=== PATIENT | male | born 1985 | race Caucasian/White ===

== ENCOUNTER 2021-09-13 14:04 | Emergency (ER) | payer BC, OTHER ==
[~2021-09-13] VITALS: Ht 180 cm; Wt 88.0 kg
--- NOTE | 2021-09-13 14:42 | ED Cough/URI ---
General Chief Complaint: Respiratory Problems Stated Complaint: COVID POSITIVE,COUGHING UP BLOOD Nursing Triage Note: THE PT IS AMBULATORY TO THE ROOM WITHOUT DIFFICULTY. NO DISTRESS IS SEEN ON ARRIVAL. LOC IS NORMAL FOR THE PT. THE PT C/O OF A COUGH/BODY ACHES. Source: patient Exam Limitations: no limitations History of Present Illness Date Seen by Provider: Sep 13, 2021 Time Seen by Provider: 14:41 Initial Comments To ER by private vehicle with reports of cough shortness of breath and hemoptysis. The hemoptysis began today. Cough has been present for several days. He tested positive for Covid on 09/09/21. Symptoms began on 09/08/21. He is unvaccinated against Covid. He is otherwise healthy takes no medications. He has had fevers. He took a full dose aspirin this morning but otherwise no Tylenol or Motrin use yet today. He is scheduled for a a monoclonal antibody infusion tomorrow he states. Timing/Duration: constant Severity/Quality: productive cough Modifying Factors: Improves With Activity Associated Symptoms: cough, shortness of breath Allergies and Home Medications Allergies Coded Allergies: No Known Drug Allergies (Unverified , 09/13/21) Patient Home Medication List Home Medication List Reviewed: Yes Review of Systems Review of Systems Constitutional: see HPI, fever, malaise EENTM: see HPI Respiratory: see HPI, cough, short of breath Genitourinary: no symptoms reported Musculoskeletal: no symptoms reported Skin: no symptoms reported Psychiatric/Neurological: No Symptoms Reported Hematologic/Lymphatic: No Symptoms Reported Immunological/Allergic: no symptoms reported Physical Exam Vital Signs - First Documented 09/13/21 14:16 Temp 37.9 Pulse 100 Resp 18 B/P (MAP) 128/85 (99) Pulse Ox 94 Capillary Refill : Less Than 3 Seconds Height: '" Weight: lbs. oz. kg; 27.00 BMI Method: General Appearance: WD/WN, no apparent distress, other (Oxygen saturation is 92 to 94% on room air. ) Eyes: Bilateral Eye Normal Inspection, Bilateral Eye PERRL, Bilateral Eye EOMI HEENT: PERRL/EOMI, normal ENT inspection, TMs normal Neck: non-tender, full range of motion Respiratory: no respiratory distress, no accessory muscle use Cardiovascular: regular rate, rhythm, no murmur Gastrointestinal: normal bowel sounds, non tender, soft Neurologic/Psychiatric: alert, normal mood/affect, oriented x 3 Skin: normal color, warm/dry Progress/Results/Core Measures Suspected Sepsis SIRS Temperature: Pulse: 100 Respiratory Rate: 18 Laboratory Tests 09/13/21 14:37: White Blood Count 4.3 Blood Pressure 128 /85 Mean: 99 Laboratory Tests 09/13/21 14:37: Creatinine 0.92, Platelet Count 201, Total Bilirubin 0.7 Results/Orders Lab Results Laboratory Tests Test 09/13/21 14:37 09/13/21 14:54 Range/Units White Blood Count 4.3 4.3-11.0 10^3/uL Red Blood Count 5.45 4.30-5.52 10^6/uL Hemoglobin 16.0 13.3-17.7 g/dL Hematocrit 46 40-54 % Mean Corpuscular Volume 84 80-99 fL Mean Corpuscular Hemoglobin 29 25-34 pg Mean Corpuscular Hemoglobin Concent 35 32-36 g/dL Red Cell Distribution Width 12.2 10.0-14.5 % Platelet Count 201 130-400 10^3/uL Mean Platelet Volume 9.3 9.0-12.2 fL Immature Granulocyte % (Auto) 1 % Neutrophils (%) (Auto) 76 H 42-75 % Lymphocytes (%) (Auto) 13 12-44 % Monocytes (%) (Auto) 11 0-12 % Eosinophils (%) (Auto) 0 0-10 % Basophils (%) (Auto) 0 0-10 % Neutrophils # (Auto) 3.3 1.8-7.8 X 10^3 Lymphocytes # (Auto) 0.6 L 1.0-4.0 X 10^3 Monocytes # (Auto) 0.5 0.0-1.0 X 10^3 Eosinophils # (Auto) 0.0 0.0-0.3 10^3/uL Basophils # (Auto) 0.0 0.0-0.1 10^3/uL Immature Granulocyte # (Auto) 0.0 0.0-0.1 10^3/uL Sodium Level 134 L 135-145 MMOL/L Potassium Level 3.5 L 3.6-5.0 MMOL/L Chloride Level 97 L 98-107 MMOL/L Carbon Dioxide Level 23 21-32 MMOL/L Anion Gap 14 5-14 MMOL/L Blood Urea Nitrogen 15 7-18 MG/DL Creatinine 0.92 0.60-1.30 MG/DL Estimat Glomerular Filtration Rate 95 BUN/Creatinine Ratio 16 Glucose Level 117 H 70-105 MG/DL Calcium Level 8.3 L 8.5-10.1 MG/DL Corrected Calcium 8.5 8.5-10.1 MG/DL Total Bilirubin 0.7 0.1-1.0 MG/DL Aspartate Amino Transf (AST/SGOT) 36 H 5-34 U/L Alanine Aminotransferase (ALT/SGPT) 38 0-55 U/L Alkaline Phosphatase 64 40-136 U/L C-Reactive Protein High Sensitivity 1.66 H 0.00-0.50 MG/DL Total Protein 7.2 6.4-8.2 GM/DL Albumin 3.8 3.2-4.5 GM/DL Procalcitonin 0.14 H <0.10 NG/ML D-Dimer 0.43 0.00-0.49 UG/ML My Orders Orders - VADIM NAQVI APRN Chest 1 View, Ap/Pa Only (09/13/21 14:08) Cbc With Automated Diff (09/13/21 14:08) Hs C Reactive Protein (09/13/21 14:08) Fibrin Degradation Products (09/13/21 14:08) Comprehensive Metabolic Panel (09/13/21 14:08) Procalcitonin (Pct) (09/13/21 14:08) Lactated Ringers (Lr 1000 Ml Iv Solution (09/13/21 14:45) Vital Signs/I&O 09/13/21 14:16 Temp 37.9 Pulse 100 Resp 18 B/P (MAP) 128/85 (99) Pulse Ox 94 Capillary Refill : Less Than 3 Seconds Blood Pressure Mean: 99 Diagnostic Imaging Diagonstic Imaging: Xray, CT Comments NAME: MONA GONZALEZ [facility] REC#: [id number] PT STATUS: REG ER : 1985 PHYSICIAN: VADIM NAQVI APRN ADMIT DATE: 09/13/21/ER Draft Date of Exam:09/13/21 CHEST 1 VIEW, AP/PA ONLY Clinical Indication: Patient with cough and bodyaches. COVID positive. Exam: Portable chest x-ray upright view. Comparisons: None. Findings: Lungs/pleura: There are small to moderate amounts of patchy bilateral lung infiltrates. Slightly low lung volumes noted. There is no pneumothorax. There is no pleural effusion. Mediastinum: Unremarkable. Pulmonary vasculature: Unremarkable. Heart: Unremarkable. Bones/extrathoracic soft tissue: Unremarkable. Impression: There are patchy bilateral lung infiltrates which may represent an infectious or inflammatory process. Given that the patient was coughing up blood, pulmonary blood cannot be completely excluded. Dictated on workstation # [id number] Dict: 09/13/21 1440 Trans: 09/13/21 1444 [facility] [id number] Interpreted by: MAXIMUS PHIPPS MD Electronically signed by: Departure Impression Primary Impression: COVID-19 Disposition: 01 HOME, SELF-CARE Condition: Stable Departure-Patient Inst. Decision time for Depature: 15:22 Referrals: NO,LOCAL PHYSICIAN (PCP/Family) Primary Care Physician Patient Instructions: COVID-19 ED Add. Discharge Instructions: 1. Tylenol and ibuprofen for fever control. No evidence of blood clot on blood work. Follow-up with your doctor as scheduled and be sure to get the infusion tomorrow. All discharge instructions reviewed with patient and/or family. Voiced understanding. Scripts Acetaminophen with Codeine (Acetaminophen-Cod #3 Tablet) 1 Each Tablet 1 EACH PO Q4H PRN for COUGH for 7 Days, #14 TAB Prov: VADIM NAQVI APRN 09/13/21 VADIM NAQVI APRN Sep 13, 2021 14:42
[2021-09-13] MEDS ORDERED: LACTATED RINGERS 1,000 ML IV SCH (14:45)
--- NOTE | 2021-09-13 14:45 | Diagnostic Imaging Report ---
Clinical Indication: Patient with cough and bodyaches. COVID positive. Exam: Portable chest x-ray upright view. Comparisons: None. Findings: Lungs/pleura: There are small to moderate amounts of patchy bilateral lung infiltrates. Slightly low lung volumes noted. There is no pneumothorax. There is no pleural effusion. Mediastinum: Unremarkable. Pulmonary vasculature: Unremarkable. Heart: Unremarkable. Bones/extrathoracic soft tissue: Unremarkable. Impression: There are patchy bilateral lung infiltrates which may represent an infectious or inflammatory process. Given that the patient was coughing up blood, pulmonary blood cannot be completely excluded. Dictated by: Dictated on workstation # [id number]
[2021-09-13 14:46] LABS: BASOPHILS % (AUTO) 0 % (0-10); EOSINOPHILS % (AUTO) 0 % (0-10); HEMATOCRIT 46 % (40-54); LYMPHOCYTES # (AUTO) 0.6 X 10^3 (1.0-4.0); LYMPHOCYTES % (AUTO) 13 % (12-44); MEAN CORPUSCULAR HEMOGLOBIN 29 pg (25-34); MEAN CORPUSCULAR HGB CONC 35 g/dL (32-36); MEAN CORPUSCULAR VOLUME 84 fL (80-99); MEAN PLATELET VOLUME 9.3 fL (9.0-12.2); MONOCYTES # (AUTO) 0.5 X 10^3 (0.0-1.0); MONOCYTES % (AUTO) 11 % (0-12); NEUTROPHILS # (AUTO) 3.3 X 10^3 (1.8-7.8); NEUTROPHILS % (AUTO) 76 % (42-75); PLATELET COUNT 201 10^3/uL (130-400); WHITE BLOOD COUNT 4.3 10^3/uL (4.3-11.0)
[2021-09-13 14:49] LABS: ALBUMIN 3.8 GM/DL (3.2-4.5)
[2021-09-13 14:50] LABS: POTASSIUM 3.5 MMOL/L (3.6-5.0)
[2021-09-13 14:51] LABS: CALCIUM 8.3 MG/DL (8.5-10.1)
[2021-09-13 14:52] LABS: TOTAL PROTEIN 7.2 GM/DL (6.4-8.2)
[2021-09-13 14:54] LABS: BILIRUBIN,TOTAL 0.7 MG/DL (0.1-1.0)
[2021-09-13 14:56] LABS: CREATININE SERUM 0.92 MG/DL (0.60-1.30)
[2021-09-13] MEDS ORDERED: ACET1TAB43 PO (15:33)
[2021-09-13 15:38] VITALS: BP 120/80
== END 2021-09-13 15:41 | disposition home or self-care (01) ==
LOC: EDUNIT# 14:04 → ER 14:06
DX: U07.1 COVID-19 (principal)
CPT/HCPCS: 36415; 71045; 80053; 84145; 85025; 85379; 86141

== ENCOUNTER → 2021-09-14 | Outpatient (CLI) | payer BC ==
[~2021-09-14] MED LIST: ACET1TAB43 PO; ACETAMINOPHEN 500 MG TAB (TYLENOL) PO PRN; CASIRIVIMAB/IMDEVIMAB 1,200 MG in NS (IVPB) 250 ML IV ONE; EPINEPHrine INJECTION 1 MG/ML AMP IM PRN; ONDANSETRON 4 MG/2 ML (SDV) Z0FRAN IV PRN; diphenhydrAMINE 50 MG/ML INJ (BENADRYL) IV PRN
[2021-09-14 11:30] VITALS: BP 118/71
[2021-09-14 11:33] VITALS: BP 118/71
[2021-09-14 13:00] VITALS: BP 129/77
== END ==
LOC: INFUSION 11:23
PROVIDERS: ATTEND Physician Assistant
DX: U07.1 COVID-19 (principal)